=== PATIENT | female | born 1960 | race American Indian/Alaskan Native ===

== ENCOUNTER 2016-08-19 08:54 | Emergency (ER) | payer SELFPAY ==
--- NOTE | 2016-08-19 10:04 | Emergency Department Report ---
Chief Complaint: Chest Pain Stated Complaint: CHEST PAINS Time Seen by Provider: 08/19/16 09:57 - HPI History of Present Illness: 56-year-old female with a past medical history of diabetes hypertension and CHF comes in for complaint of left lateral ribs and right rib pain status post fall a few weeks ago. Patient put if she had LOC at that time. She reports the pain is worse with movement and lifting her arms and taking deep breaths. Patient reports that she takes all her medicines as prescribed. She does have a primary care doctor named Dr. Drake. Her next appointment is 09/14/2016. She reports she's noticed that her blood pressure still not wear it should be. - Exam Vital Signs: Vital Signs 08/19/16 09:08 Temperature 98.3 F Pulse Rate 94 H Respiratory 18 Rate Blood Pressure 144/106 O2 Sat by Pulse 100 Oximetry Physical Exam: Patient is alert and oriented 3. Cardiovascular S1-S2 regular rate and rhythm respiratory she states her to auscultation bilateral rib cage and tenderness to the anterior lateral left side. Able to notice her pacemaker in her left upper chest. She reports some tenderness when I touch to the right upper chest. Extremities there is no edema noted. MSE screening note: Focused history and physical exam performed. Due to findings the following was ordered: CBC CMP rib x-rays ordered. ED Disposition for MSE Condition: Stable
--- NOTE | 2016-08-19 10:22 | XRay Report ---
BILATERAL RIBS, 3 VIEWS History: Pain after fall. Findings: Right anterolateral 7-9 rib deformities are suspected. Subtle left anterior seventh rib fracture is also suspected. The lungs are well-aerated. No pneumothorax or pleural effusion. Normal heart size. Impression: Bilateral nondisplaced rib deformities as outlined above which could represent subacute fractures.
[2016-08-19 10:39] LABS: Basophils % (Auto) 0.8 % (0.0-1.8); Eosinophils % (Auto) 0.6 % (0.0-4.3); Hematocrit 42.4 % (30.3-42.9); Hemoglobin 14.1 gm/dl (10.1-14.3); Mean Corpuscular HGB Conc 33 % (30-34); Mean Corpuscular Hemoglobin 32 pg (28-32); Mean Corpuscular Volume 95 fl (79-97); Platelet Count 322 K/mm3 (140-440); Red Blood Count 4.45 M/mm3 (3.65-5.03); Red Cell Distribution Width 15.5 % (13.2-15.2); White Blood Count 7.8 K/mm3 (4.5-11.0)
[2016-08-19 10:55] LABS: Anion Gap 18 mmol/L; BUN/Creatinine Ratio 15.71; Blood Urea Nitrogen 11 mg/dL (7-17); Calcium 9.6 mg/dL (8.4-10.2); Carbon Dioxide 22 mmol/L (22-30); Chloride 104.5 mmol/L (98-107); Glucose 84 mg/dL (65-100); Potassium 4.3 mmol/L (3.6-5.0); Sodium 140 mmol/L (137-145)
[2016-08-19] MEDS ORDERED: HCTZ PO ONE (11:34)
[2016-08-19] MEDS ORDERED: NORVASC PO ONE (11:34)
--- NOTE | 2016-08-19 11:36 | Emergency Department Report ---
Blank Doc - Documentation Documentation: His provider recheck patient's blood pressure was 167/118. We will give her amlodipine 5 mg by mouth as well as hydrochlorothiazide 25 mg by mouth. Patient be seen by the main ER.
[2016-08-19] MEDS ORDERED: ZOFRAN ODT PO ONE (22:55)
[2016-08-19] MEDS ORDERED: NITROSTAT SL ONE (22:55)
[2016-08-19] MEDS ORDERED: MORPHINE IM ONE (22:55)
--- NOTE | 2016-08-19 23:00 | Emergency Department Report ---
HPI - General Chief Complaint: Chest Pain Time Seen by Provider: 08/19/16 09:57 - HPI HPI: The patient is a 56-year-old female presents for evaluation of bilateral chest pain. The patient reports falling secondary to tripping while carrying her [place] at home 2 weeks ago. She states that she fell and landed on her bilateral chest wall, and has since experienced on and off aching in quality, moderate to severe chest pain, exacerbated with movement of the chest wall, and improved with rest. The patient denies fever, dyspnea, hemoptysis, unilateral leg swelling, recent immobilization, history of DVT or PE. ED Past Medical Hx - Past Medical History Hx Hypertension: Yes Hx Diabetes: Yes Additional medical history: Anxiety, - Surgical History Additional Surgical History: Pacemaker, c-sec x2 - Social History Smoking Status: Current Every Day Smoker Substance Use Type: Alcohol - Medications Home Medications: Home Medications Medication Instructions Recorded Confirmed Last Taken Type HYDROcodone/APAP 7.5-325 [[place] 1 each PO Q6HR PRN #20 tablet 11/09/13 Unknown Rx 7.5-325 mg TAB] Clindamycin [Clindamycin CAP] 300 mg PO Q6H #40 capsule 08/08/14 Unknown Rx HYDROcodone/APAP 5-325 [[place] 1 each PO Q6HR PRN #12 tablet 08/08/14 Unknown Rx 5-325 mg TAB] Ibuprofen [Motrin 600 MG tab] 600 mg PO Q8H PRN #30 tablet 08/08/14 Unknown Rx Famotidine [Pepcid] 20 mg PO BID #60 tablet 05/30/16 Unknown Rx Lisinopril 05/30/16 Unknown History ALPRAZolam [Xanax TAB] 0.5 mg PO BID PRN #10 tablet 07/15/16 Unknown Rx Lisinopril [Zestril TAB] 10 mg PO QDAY #90 tablet 07/15/16 Unknown Rx oxyCODONE /ACETAMINOPHEN [Percocet 1 tab PO Q6HR PRN #30 tablet 07/15/16 Unknown Rx 5/325] HYDROcodone/APAP 5-325 [[place] 1 each PO Q6HR PRN #10 tablet 08/19/16 Unknown Rx 5/325] ED Review of Systems ROS: Stated complaint: CHEST PAINS Other details as noted in HPI Constitutional: denies: fever ENT: denies: throat or neck pain Respiratory: denies: cough, shortness of breath Cardiovascular: reports chest pain Endocrine: denies unexplained weight loss or gain Gastrointestinal: denies: abdominal pain, nausea Genitourinary: denies: dysuria Musculoskeletal: denies: leg swelling Skin: denies: rash Neurological: denies: headache Hematological/Lymphatic: denies: easy bleeding or easy bruising Psych: denies sadness or hopelessness Physical Exam - Physical Exam Vital Signs: Vital Signs 08/19/16 08/19/16 08/19/16 09:08 11:52 12:37 Temperature 98.3 F Pulse Rate 94 H 97 H 95 H Respiratory 18 16 Rate Blood Pressure 144/106 165/103 Blood Pressure 159/96 [Left] O2 Sat by Pulse 100 100 Oximetry 08/19/16 08/19/16 16:15 20:18 Temperature 98.2 F Pulse Rate 93 H 92 H Respiratory 16 18 Rate Blood Pressure 148/109 Blood Pressure 155/104 [Left] O2 Sat by Pulse 100 100 Oximetry Physical Exam: General: well-nourished, well-developed, no acute distress Head: Normocephalic, atraumatic Eyes: normal sclera Neck: trachea midline, neck supple, No neck stiffness, no cervical adenopathy Respiratory: Breath sounds equal bilaterally, no wheezing, rales, or rhonchi Cardio: S1 and S2 present, no murmurs, rubs, gallops, capillary refill is brisk Abdomen: Normoactive bowel sounds, soft abdomen, no tenderness Chest WALL/Back: tenderness to palpation of the bilateral lower chest wall at the anterior axillary lines Musc: No pitting edema Skin: No rash Neuro: normal speech Psych: Normal affect ED Course Vital Signs 08/19/16 08/19/16 08/19/16 09:08 11:52 12:37 Temperature 98.3 F Pulse Rate 94 H 97 H 95 H Respiratory 18 16 Rate Blood Pressure 144/106 165/103 Blood Pressure 159/96 [Left] O2 Sat by Pulse 100 100 Oximetry 08/19/16 08/19/16 16:15 20:18 Temperature 98.2 F Pulse Rate 93 H 92 H Respiratory 16 18 Rate Blood Pressure 148/109 Blood Pressure 155/104 [Left] O2 Sat by Pulse 100 100 Oximetry ED Medical Decision Making - Lab Data Result diagrams: 08/19/16 10:21 08/19/16 10:21 - Medical Decision Making The patient was seen and examined by myself. The patient is placed on a monitoring specialist and continuous pulse ox. On initial evaluation, the patient was found to be in no distress. Evaluation orders were placed. EKG unremarkable. X -ray of the bilateral ribs and AP chest is negative for displaced rib fractures , pneumothorax, or other emergent cardiopulmonary disease process. The patient is given an IM dose of morphine for pain. The patient was reevaluated and reported that their symptoms were markedly improved. The patient is stable for discharge with outpatient follow-up. The patient is given follow-up and return instructions. The patient expressed understanding and agreed with the plan. The patient is discharged in stable condition. Critical care attestation.: If time is entered above; I have spent that time in minutes in the direct care of this critically ill patient, excluding procedure time. ED Disposition Clinical Impression: Acute chest wall pain, Asymptomatic hypertensive urgency, Fall on same level from tripping as cause of accidental injury Disposition: DISCHARGED TO HOME OR SELFCARE Is pt being admited?: No Does the pt Need Aspirin: No Condition: Stable Instructions: Chest Pain (ED), Hypertension (ED), Musculoskeletal Pain (ED) Referrals: PRIMARY CARE, [Primary Care Provider] - 3-5 Days Time of Disposition: 22:56
[2016-08-20 05:37] VITALS: BP 163/91
== END 2016-08-19 23:52 | disposition home or self-care (01) ==
LOC: ED 08:54
DX: R07.89 Other chest pain (principal); I10 Essential (primary) hypertension; E11.9 Type 2 diabetes mellitus without complications; F17.200 Nicotine dependence, unspecified, uncomplicated; Z95.0 Presence of cardiac pacemaker; W19.XXXA Unspecified fall, initial encounter; Y93.89 Activity, other specified; Y99.9 Unspecified external cause status; Y92.89 Other specified places as the place of occurrence of the external cause
CPT/HCPCS: 36415; 71110; 80048; 85025; 93005; 93010; 96372; 99284; J2270; Q0162